=== PATIENT | male | born 1965 ===

== ENCOUNTER 2017-07-20 07:14 | Day surgery (SDC) | payer SELFPAY ==
[2017-07-20] MEDS ORDERED: Lactated Ringer's 500 ML IV ONE (07:38)
[2017-07-20] MEDS ORDERED: Lidocaine PF 2% (5 ml) Inj (For Cardiac Arrhy) IV ONE (08:06)
[2017-07-20] MEDS ORDERED: Midazolam 2 MG/2 ML VIAL ONE (08:06)
[2017-07-20] MEDS ORDERED: Propofol 10 mg/ml Inj (20 ML) ONE (08:06)
[2017-07-20 08:52] VITALS: TEMP 97; O2SAT 99
[2017-07-20 09:00] VITALS: BP 118/72; PULSE 59; RESP 15
== END 2017-07-20 09:43 | disposition home or self-care (01) ==
LOC: H.ENDO 07:14
PROVIDERS: ATTEND Internal Medicine Gastroenterology
DX: K64.8 Other hemorrhoids (principal); R19.5 Other fecal abnormalities; R06.83 Snoring; R73.03 Prediabetes
CPT/HCPCS: 45378; J2250; J2704; J7120